=== PATIENT | male | born 1925 | race Caucasian/White ===

== ENCOUNTER 2016-11-14 05:29 | Inpatient (IN) | payer OTHER, MEDICARE ==
[2016-11-14] VITALS (11 sets, daily range): BP systolic 115–157; BP diastolic 64–86
[~2016-11-14] VITALS: Ht 172.7 cm; Wt 64.3 kg
[~2016-11-14 05:29] MED LIST: ADVAIR 250/501 DISK IH; AMIODARONE HCL200 MG PO; ASPIR-LOW81 MG PO; ATROVENT 0.03%30 ML BOTH NARES; CLARITIN10 MG PO; FLONASE16 G1 BOTH NARES; GLYBURIDE1.25 MG PO; HYDROCHLOROTH12.5 M3 PO; HYDROCODON-ACE1 EAC7 PO; LIPITOR20 MG PO; LISINOPRIL2.5 MG PO; LOPRESSOR25 MG PO; LOSARTAN POTASS25 MG PO; LUMIGAN 0.50 DROP/22 BOTH EYES; MIRALAX255 GM PO; MULTI-VITAMIN1 EAC4 PO; NITROSTAT0.4 MG SL; NORVASC2.5 MG PO; OMEPRAZOLE20 MG PO; PLAVIX75 MG PO; PRAVACHOL40 MG PO; SINGULAIR10 MG PO; TRAVOPROST 0.02.5 ML BOTH EYES; VITAMIN D31000 UNI2 PO; VITAMIN D31000 UNIT PO; VITAMIN D32000 UNI1 PO; [UNRECOGNIZED DRUG - OTHER] PO
[2016-11-14] MEDS ORDERED: HYDROCODON-ACE1 EAC7 PO (16:05)
[2016-11-15 00:49] LABS: METH RESISTANT S AUREUS PCR NEGATIVE (NEGATIVE)
[2016-11-15 00:50] LABS: PROBE CHECK PASS; SPECIMEN PROCESSING CONTROL PASS
[2016-11-15 03:47] VITALS: BP 148/76
[2016-11-15 07:09] VITALS: BP 138/67
[2016-11-15 11:36] VITALS: BP 132/69
[2016-11-15 16:40] VITALS: BP 145/73
== END 2016-11-15 19:01 | disposition home or self-care (01) | DRG 39 ==
LOC: 2SOUTH 05:29 → 4WEST 05:29 → 2SOUTH 10:02 → 4WEST 11:47 → 4EAST 19:11 → 2SOUTH 11-25 09:52
PROVIDERS: Surgery
PROC: 03UL0JZ Supplement Left Internal Carotid Artery with Synthetic Substitute, Open Approach (ICD-10-PCS; principal; 2016-11-14)
PROC: 03CL0ZZ Extirpation of Matter from Left Internal Carotid Artery, Open Approach (ICD-10-PCS; principal; 2016-11-14)
DX: I65.22 Occlusion and stenosis of left carotid artery (principal); J45.909 Unspecified asthma, uncomplicated; I25.10 Atherosclerotic heart disease of native coronary artery without angina pectoris; I35.0 Nonrheumatic aortic (valve) stenosis; I12.9 Hypertensive chronic kidney disease with stage 1 through stage 4 chronic kidney disease, or unspecified chronic kidney disease; N18.9 Chronic kidney disease, unspecified; E11.22 Type 2 diabetes mellitus with diabetic chronic kidney disease; E78.5 Hyperlipidemia, unspecified; I25.2 Old myocardial infarction; Z95.0 Presence of cardiac pacemaker; Z79.01 Long term (current) use of anticoagulants; Z95.5 Presence of coronary angioplasty implant and graft; Z79.82 Long term (current) use of aspirin; Z79.02 Long term (current) use of antithrombotics/antiplatelets
CPT/HCPCS: 87641; 93005; C1768; J0131; J0690; J1100; J1644; J1650; J2405; J2720; J2795; J3010; J7120